=== PATIENT | female | born 1940 | race Caucasian/White ===

== ENCOUNTER 2016-07-22 13:18 | Inpatient (IN) | payer MEDICARE ==
[2016-07-22 17:13] LABS: RED BLOOD COUNT 4.36 M/UL (4.00-5.10); WHITE BLOOD COUNT 4.6 K/UL (4.5-11.0)
[2016-07-22 17:15] LABS: HEMOGLOBIN 6.4 gm/dl (12.3-15.3)
[2016-07-22 17:27] LABS: BUN/CREATININE RATIO 13 (0-10)
[2016-07-23 05:54] LABS: RED BLOOD COUNT 4.55 M/UL (4.00-5.10); WHITE BLOOD COUNT 4.8 K/UL (4.5-11.0)
[2016-07-23 06:04] LABS: BUN/CREATININE RATIO 8 (0-10)
[2016-07-23 06:07] LABS: HEMOGLOBIN 7.2 gm/dl (12.3-15.3)
[2016-07-24 06:48] LABS: HEMOGLOBIN 8.6 gm/dl (12.3-15.3); RED BLOOD COUNT 4.96 M/UL (4.00-5.10)
[2016-07-24 07:14] LABS: BUN/CREATININE RATIO 10 (0-10)
[2016-07-26 06:36] LABS: HEMOGLOBIN 8.2 gm/dl (12.3-15.3); RED BLOOD COUNT 4.82 M/UL (4.00-5.10); WHITE BLOOD COUNT 4.7 K/UL (4.5-11.0)
[2016-07-26 06:55] LABS: BUN/CREATININE RATIO 17 (0-10)
[2016-07-27 06:54] LABS: RED BLOOD COUNT 4.61 M/UL (4.00-5.10); WHITE BLOOD COUNT 4.3 K/UL (4.5-11.0)
[2016-07-27 07:07] LABS: BUN/CREATININE RATIO 23 (0-10)
[2016-07-28 07:02] LABS: RED BLOOD COUNT 4.62 M/UL (4.00-5.10); WHITE BLOOD COUNT 3.7 K/UL (4.5-11.0)
[2016-07-28 07:07] LABS: BUN/CREATININE RATIO 17 (0-10)
[2016-07-29 06:18] LABS: HEMOGLOBIN 8.2 gm/dl (12.3-15.3); RED BLOOD COUNT 4.61 M/UL (4.00-5.10); WHITE BLOOD COUNT 4.7 K/UL (4.5-11.0)
[2016-07-29 06:36] LABS: BUN/CREATININE RATIO 17 (0-10)
== END 2016-07-29 13:20 | DRG 812 ==
LOC: ER1 13:18 → ZEROF 22:15 → M/S 22:15
PROVIDERS: Hospitalist; Internal Medicine; Internal Medicine Gastroenterology; Internal Medicine Hematology & Oncology; Physician Assistant; ADMIT Emergency Medicine
PROC: 30233H1 Transfusion of Nonautologous Whole Blood into Peripheral Vein, Percutaneous Approach (ICD-10-PCS; 2016-07-22)
PROC: 0DJ08ZZ Inspection of Upper Intestinal Tract, Via Natural or Artificial Opening Endoscopic (ICD-10-PCS; 2016-07-27)
PROC: 0DBL8ZX Excision of Transverse Colon, Via Natural or Artificial Opening Endoscopic, Diagnostic (ICD-10-PCS; principal; 2016-07-28 14:00)
DX: D50.9 Iron deficiency anemia, unspecified (principal); N30.00 Acute cystitis without hematuria; K92.1 Melena; T74.01XA Adult neglect or abandonment, confirmed, initial encounter; E87.6 Hypokalemia; F03.90 Unspecified dementia, unspecified severity, without behavioral disturbance, psychotic disturbance, mood disturbance, and anxiety; R46.0 Very low level of personal hygiene; Z23 Encounter for immunization; K59.09 Other constipation; E11.65 Type 2 diabetes mellitus with hyperglycemia; I27.2 Other secondary pulmonary hypertension; L25.3 Unspecified contact dermatitis due to other chemical products; Q27.33 Arteriovenous malformation of digestive system vessel; K21.0 Gastro-esophageal reflux disease with esophagitis; K63.5 Polyp of colon; K57.90 Diverticulosis of intestine, part unspecified, without perforation or abscess without bleeding; K64.1 Second degree hemorrhoids
CPT/HCPCS: ECHO; 36415; 70450; 74000; 80048; 80053; 81001; 82272; 82607; 82728; 82746; 82962; 83036; 83540; 83550; 83735; 84439; 84443; 84484; 85025; 85027; 85045; 86850; 86900; 86901; 86920; 87086; 93306; 96374; 96375; 96376; 99285; G0008; J0696; J1756; J1815; J2250; J3010; J3480; J3486; J7040; J7050; P9016; Q2039